=== PATIENT | male | born 1950 | race Caucasian/White ===

== ENCOUNTER → 2017-12-12 | Outpatient (CLI) | payer MEDICARE ==
[~2017-12-12] MED LIST: ALPR1T PO; ASP81TEC PO; CLOP75TA PO; CRESTOR40 MG PO; HYDR-3720 PO; LISI10TA PO; LISI5TAB PO; LSNP10T PO; LSNP20T PO; MELO-195 PO; METO-272 PO; METO25TA2 PO; MTP25TSR PO; MULT-974 PO; PRAV10TA23 PO
== END ==
LOC: RAD 12:50
PROVIDERS: ATTEND Internal Medicine Cardiovascular Disease
DX: I73.9 Peripheral vascular disease, unspecified (principal); I10 Essential (primary) hypertension; F17.210 Nicotine dependence, cigarettes, uncomplicated
CPT/HCPCS: 93923

== ENCOUNTER → 2017-12-15 | Outpatient (CLI) | payer MEDICARE | LOC: CARD 12:07 | PROVIDERS: ATTEND Internal Medicine Cardiovascular Disease | DX: I25.10 Atherosclerotic heart disease of native coronary artery without angina pectoris (principal); E78.5 Hyperlipidemia, unspecified; I10 Essential (primary) hypertension; Z72.0 Tobacco use; I77.89 Other specified disorders of arteries and arterioles | CPT/HCPCS: 93306 ==

== ENCOUNTER 2019-09-10 12:07 | Day surgery (SDC) | payer MEDICARE, OTHER ==
[2019-09-10] VITALS (11 sets, daily range): BP systolic 151–170; BP diastolic 89–99
[~2019-09-10] VITALS: Ht 165 cm; Wt 61.0 kg
[2019-09-10] MEDS ORDERED: NS IV 1000 ML 1,000 ML ONE (12:13)
[2019-09-10] MEDS ORDERED: LIDOCAINE 1% INJ 20 ML 20 ML VIAL ONE (12:13)
[2019-09-10] MEDS ORDERED: HEParin (CATH LAB) 2,000 ML IV ONE (12:13)
[2019-09-10] MEDS ORDERED: NS IV 1000 ML 1,000 ML IV SCH ×2 (12:30→16:52)
--- NOTE | 2019-09-10 12:53 | Diagnostic Imaging Report ---
INDICATION: Coronary artery disease, hypertension Portable chest 12:28 PM There are postoperative changes from median sternotomy. Heart size and pulmonary vascularity are normal. Lungs are clear. There are no effusions or pneumothoraces. IMPRESSION: No acute abnormalities in the chest. Dictated by: Dictated on workstation # [id number]
[2019-09-10 13:12] LABS: HEMOGLOBIN 14.8 G/DL (13.3-17.7); MEAN PLATELET VOLUME 10.8 FL (7.4-10.4); RED CELL DISTRIBUTION WIDTH 14.5 % (10.0-14.5)
[2019-09-10] MEDS ORDERED: CHLO50TA2 PO (13:15)
[2019-09-10] MEDS ORDERED: MTP25TSR PO (13:15)
[2019-09-10] MEDS ORDERED: CELE200C PO (13:15)
[2019-09-10] MEDS ORDERED: LISI40TA PO (13:15)
[2019-09-10 13:29] LABS: INR 0.9 (0.8-1.4); PROTHROMBIN TIME PATIENT 12.7 SEC (12.2-14.7)
[2019-09-10 13:34] LABS: ALANINE AMINOTRANSFERASE 32 U/L (0-55); ALKALINE PHOSPHATASE 109 U/L (40-136); BILIRUBIN,TOTAL 0.4 MG/DL (0.1-1.0); BUN/CREATININE RATIO 16; CALCIUM 9.8 MG/DL (8.5-10.1); CARBON DIOXIDE 29 MMOL/L (21-32); CHLORIDE 105 MMOL/L (98-107); CHOLESTEROL 146 MG/DL (< 200); CREATININE SERUM 1.13 MG/DL (0.60-1.30); GFR ESTIMATED > 60; GLUCOSE 76 MG/DL (70-105); HDL CHOLESTEROL 59 MG/DL (40-60); POTASSIUM 3.8 MMOL/L (3.6-5.0); SODIUM 141 MMOL/L (135-145); TOTAL PROTEIN 7.6 GM/DL (6.4-8.2); TRIGLYCERIDES 85 MG/DL (<150); VLDL CHOLESTEROL 17 MG/DL (5-40)
[2019-09-10] MEDS ORDERED: fentaNYL INJECTION 100 MCG/2 ML AMP ONE ×2 (14:25→14:39)
[2019-09-10] MEDS ORDERED: MIDAZOLAM 5 MG/5 ML (VERSED) VIAL ONE ×2 (14:25→14:39)
--- NOTE | 2019-09-10 14:57 | Cardiac Procedure Note-CS/ASA ---
Pre-Procedure Note Pre-Op Procedure Note H&P Reviewed The H&P was reviewed, patient examined and no changes noted. Date H&P Reviewed: Sep 10, 2019 Time H&P Reviewed: 14:56 Conscious Sedation Pre-Proced Time 14:56 ASA Score 3 For ASA 3 and 4: Consider anesthesia and medical clearance. Also, for patients with a history of failed moderate sedation consider anesthesia. Airway Lungs Heart ASA score ASA 1: a normal healthy patient ASA 2: a patient with a mild systemic disease (mid diabetes, controlled hypertension, obesity ASA 3: a patient with a severe systemic disease that limits activity (angina, COPD, prior Myocardial infarction) ASA 4: a patient with an incapacitating disease that is a constant threat to life (CHF, renal failure) ASA 5: a moribund patient not expected to survive 24 hrs. (ruptured aneurysm) ASA 6: a declared brain- patient whose organs are being harvested. For emergent operations, add the letter E after the classification Mallampati Classification Grade 2 Sedation Plan Analgesia, Amnesia, Plan communicated to team members, Discussed options with patient/fam, Discussed risks with patient/fam The patient is an appropriate candidate to undergo the planned procedure, sedation, and anesthesia. The patient immediately re-assessed prior to indication. AZEEM MICHAUD MD FACP FAC CCDS Sep 10, 2019 14:57
[2019-09-10] MEDS ORDERED: HEParin 1000 UNIT/ML (10ML VIAL) FOR BOLUS ONE (15:31)
--- NOTE | 2019-09-10 16:57 | Discharge Inst-Post CATH ---
Discharge Inst-CATH/EP Post Cardiac Cath/EP D/C Inst Follow Up/Plan Please call Dr Cruz's office tomorrow to [facility] ACTIVITY * Go Home directly and rest. * Limit activity of the leg (or wrist if it was used) for 7 days including aerobics, swimming, jogging, bicycling, etc. * Restrict stair-climbing for 7 days if possible, if not, climb up with your non-cath leg, then bring together on the same step. * Avoid lifting, pushing, pulling or excessive movement of the affected extremity for 7 days. * Customary sexual activity may be resumed after 2 days-use caution not to use a position that strains or causes pain to the affected extremity. * No driving for 24 hours. * NO SMOKING. * Avoid straining for bowel movements for 7 days. * Gentle walking on level ground is allowed. * Returning to work will depend on the type of procedure and the results. Your doctor will discuss this with you. CALL YOUR DOCTOR FOR ANY OF THE FOLLOWING: *If bleeding from the puncture site occurs- Apply gentle pressure to site with clean cloth and call your doctor or EMS. * If a knot or lump forms under the skin, increases in size, or causes pain. * If bruising appears to be worsening or moving further down your leg instead of disappearing. * Temperature above 101 F. CARE OF YOUR GROIN INCISION; * Bruising or purple discoloration of the skin near the puncture site is common. * You may shower only, no bathtub bathing for 5 days. Be careful to avoid slipping as your leg may feel stiff. * If a closure device was used on your femoral artery, please see the attached guide regarding care of the device and your leg. * Leave dressing on FOR 24 hours. CARE OF YOUR WRIST INCISION; * Bruising or purple discoloration of the skin near the puncture site is common. * You may shower. * DO NOT submerge wrist. * Leave dressing on FOR 24 hours. AZEEM CRUZ MD FACP FAC CCDS Sep 10, 2019 16:57
--- NOTE | 2019-09-10 16:57 | Discharge Inst-Cardiology ---
Discharge Inst-Cardiac Discharge Medications Continued Medications: Aspirin (Aspirin Ec 81 Mg) 81 Mg Tabec 81 MG PO DAILY Celecoxib (Celebrex) 200 Mg Capsule 200 MG PO DAILY, CAP Chlorthalidone (Chlorthalidone) 50 Mg Tablet 50 MG PO DAILY, TAB Lisinopril (Lisinopril) 40 Mg Tablet 40 MG PO DAILY, TAB Metoprolol Succinate (Metoprolol Succinate) 25 Mg Tab.er.24h 25 MG PO DAILY, TAB Multivitamin (Multi Vitamin Daily) 1 Each Tablet 1 TAB PO DAILY Rosuvastatin Calcium (Crestor) 40 Mg Tablet 40 MG PO AZEEM MICHAUD MD FACP FAC CCDS Sep 10, 2019 16:57
[2019-09-10] MEDS ORDERED: PATIENT MAY USE OWN MEDS, ALL PO SCH (17:00)
--- NOTE | 2019-09-10 17:17 | OPERATIVE REPORT ---
DATE OF SERVICE: 09/10/2019 PERIPHERAL ANGIOGRAPHY REPORT The patient is a 69-year-old man who has multiple risk factors for peripheral arterial disease, including chronic tobacco use. He has been experiencing bilateral leg claudication, more on the left side. Symptoms have been progressive and are quite severe at this time. Peripheral angiography was carried out after having obtained an informed consent. DESCRIPTION OF PROCEDURE: He was brought to the cardiac catheterization laboratory in a fasting state. Right groin was prepared and draped in the usual sterile fashion. Lidocaine 1% was obtained for local anesthesia. Modified Seldinger technique was used to advance a 5-Kazakh sheath in right femoral artery. A 5-Kazakh pigtail catheter was used to carry out abdominal aortic angiography with the pigtail catheter placed at the level of L1. The abdominal aortic angiography was repeated with the catheter placed at the level of JL4. Finally, the pigtail was placed just above the aortoiliac bifurcation and bilateral leg artery angiography was performed with runoff down to the level of the ankles. We then proceeded with selective engagement of the contralateral iliac artery (left iliac artery). We used a 5-Kazakh crossover catheter to engage the left iliac artery and runoff was performed down to the level of the ankle. Subsequently, we advanced a Glidewire through the crossover catheter and into the left common femoral and we removed the Glidewire while keeping the wire in position. We used this wire to advance a 5-Kazakh straight catheter, which was placed in the common femoral and we were able to repeat angiography. During the attempted interventional procedure that is described below, we were able to advance this catheter into the proximal portion of the left superficial femoral, as well. For the attempted interventional procedure, please see below. Attempted percutaneous intervention to the left superficial femoral. The left superficial femoral artery was found to be completely occluded. 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 We used a Storq wire, Glidewire, and 0.018 inch Command wire. We were not able to advance any of these cross the complete occlusion and at this point, decided to not pursue it further and bring the patient back at a later date for a popliteal approach. Prior to removing the catheter, we did confirm with repeat angiography that there had been no complication from the attempted intervention. The straight catheter was removed. We carried out angiography of the right femoral artery through the sheath and Mynx was used to achieve hemostasis. He tolerated the procedure well. ABDOMINAL AORTIC ANGIOGRAPHY: Abdominal aortic angiography indicated a small infrarenal abdominal aortic aneurysm. The renal arteries are identified and are intact. The origin of the right renal artery, however, was not well visualized on these images. The renal arteries, to the extent seen, do not exhibit any significant disease. BILATERAL LEG ARTERY ANGIOGRAPHY: There is considerable calcification and tortuosity of the iliac arteries, especially on the right side. The right common iliac, external iliac, common femoral and superficial femoral arteries exhibit moderate plaque and mild to moderate calcification. The superficial femoral does trifurcate with a 3-vessel distal runoff. On the left side, the common iliac, external iliac and common femoral arteries exhibit calcification and moderate plaque. The left superficial femoral artery is occluded in its proximal portion and reconstitutes via collaterals in its distal one third. The left popliteal artery does seem to trifurcate normally. Attempted intervention to this vessel was unsuccessful today. CONCLUSIONS: 1. Small abdominal aortic aneurysm. 2. Intact bilateral renal arteries. 3. 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 4. Diffuse moderate disease of the arterial circulation of the lower limbs. DISCUSSION AND RECOMMENDATIONS: He has been advised to quit smoking immediately and completely. Antiplatelet therapy is being continued. We will try retrograde intervention to the chronic total occlusion of the left superficial femoral artery via a left popliteal approach at a later date. Job ID: [id number] DocumentID: [id number] Dictated Date: 09/10/2019 16:20:25 Core Worker Date: 09/10/2019 17:16:35 Dictated By: AZEEM MICHAUD MD, MA, FACP, FACC, MTDD
[2019-09-10] MEDS ORDERED: lisINopril 20 MG (PRINIVIL) TABLET PO NR (19:15)
== END 2019-09-10 20:58 ==
LOC: CATH 12:07 → CSD 16:30 → CATH 20:58
PROVIDERS: ATTEND Internal Medicine Cardiovascular Disease
DX: I71.4 Abdominal aortic aneurysm, without rupture (principal); I77.1 Stricture of artery; I25.10 Atherosclerotic heart disease of native coronary artery without angina pectoris; I73.9 Peripheral vascular disease, unspecified; I10 Essential (primary) hypertension; E78.5 Hyperlipidemia, unspecified; G89.29 Other chronic pain; M54.9 Dorsalgia, unspecified; R00.1 Bradycardia, unspecified; F17.210 Nicotine dependence, cigarettes, uncomplicated; F41.9 Anxiety disorder, unspecified; Z79.899 Other long term (current) drug therapy; Z82.3 Family history of stroke
CPT/HCPCS: 36415; 71045; 75625; 75716; 80053; 80061; 85027; 85610; 85730; 87081; 93005

== ENCOUNTER 2019-09-17 07:03 | Day surgery (SDC) | payer MEDICARE, OTHER ==
[~2019-09-17] VITALS: Ht 165 cm; Wt 61.0 kg
[2019-09-17] VITALS (11 sets, daily range): BP systolic 91–123; BP diastolic 61–82
[~2019-09-17 07:03] MED LIST changes: +CELE200C PO; +CHLO50TA2 PO; +LIDOCAINE 1% INJ 20 ML 20 ML VIAL ONE; +LISI40TA PO
[2019-09-17] MEDS ORDERED: HEParin (CATH LAB) 2,000 ML IV ONE (07:04)
[2019-09-17] MEDS ORDERED: NS IV 1000 ML 1,000 ML ONE (07:04)
[2019-09-17] MEDS ORDERED: NS IV 1000 ML 1,000 ML IV SCH ×2 (07:15→11:04)
[2019-09-17 07:34] LABS: HEMOGLOBIN 14.5 G/DL (13.3-17.7); MEAN PLATELET VOLUME 10.8 FL (7.4-10.4); RED CELL DISTRIBUTION WIDTH 14.4 % (10.0-14.5); WHITE BLOOD COUNT 11.8 10^3/uL (4.3-11.0)
[2019-09-17 07:52] LABS: INR 0.9 (0.8-1.4); PROTHROMBIN TIME PATIENT 12.6 SEC (12.2-14.7)
[2019-09-17 08:00] LABS: ALBUMIN 3.9 GM/DL (3.2-4.5); BILIRUBIN,TOTAL 0.3 MG/DL (0.1-1.0); CALCIUM 9.7 MG/DL (8.5-10.1); CREATININE SERUM 1.21 MG/DL (0.60-1.30); POTASSIUM 3.6 MMOL/L (3.6-5.0); TOTAL PROTEIN 7.4 GM/DL (6.4-8.2)
[2019-09-17] MEDS ORDERED: HEParin 1000 UNIT/ML (10ML VIAL) FOR BOLUS ONE (08:05)
[2019-09-17] MEDS ORDERED: MIDAZOLAM 5 MG/5 ML (VERSED) VIAL ONE (08:05)
[2019-09-17] MEDS ORDERED: fentaNYL INJECTION 100 MCG/2 ML AMP ONE ×2 (08:05→10:13)
--- NOTE | 2019-09-17 11:03 | Cardiac Procedure Note-CS/ASA ---
Pre-Procedure Note Pre-Op Procedure Note H&P Reviewed The H&P was reviewed, patient examined and no changes noted. Date H&P Reviewed: Sep 17, 2019 Time H&P Reviewed: 08:45 Conscious Sedation Pre-Proced Time 08:45 ASA Score 3 For ASA 3 and 4: Consider anesthesia and medical clearance. Also, for patients with a history of failed moderate sedation consider anesthesia. Airway Lungs Heart ASA score ASA 1: a normal healthy patient ASA 2: a patient with a mild systemic disease (mid diabetes, controlled hypertension, obesity ASA 3: a patient with a severe systemic disease that limits activity (angina, COPD, prior Myocardial infarction) ASA 4: a patient with an incapacitating disease that is a constant threat to life (CHF, renal failure) ASA 5: a moribund patient not expected to survive 24 hrs. (ruptured aneurysm) ASA 6: a declared brain- patient whose organs are being harvested. For emergent operations, add the letter E after the classification Mallampati Classification Grade 2 Sedation Plan Analgesia, Amnesia, Plan communicated to team members, Discussed options with patient/fam, Discussed risks with patient/fam The patient is an appropriate candidate to undergo the planned procedure, sedation, and anesthesia. The patient immediately re-assessed prior to indication. AZEEM MICHAUD MD FACP FAC CCDS Sep 17, 2019 11:03
--- NOTE | 2019-09-17 11:07 | Discharge Inst-Cardiology ---
Discharge Inst-Cardiac Discharge Medications Continued Medications: Aspirin (Aspirin Ec 81 Mg) 81 Mg Tabec 81 MG PO DAILY Celecoxib (Celebrex) 200 Mg Capsule 200 MG PO DAILY, CAP Chlorthalidone (Chlorthalidone) 50 Mg Tablet 50 MG PO DAILY, TAB Lisinopril (Lisinopril) 40 Mg Tablet 40 MG PO DAILY, TAB Metoprolol Succinate (Metoprolol Succinate) 25 Mg Tab.er.24h 25 MG PO DAILY, TAB Multivitamin (Multi Vitamin Daily) 1 Each Tablet 1 TAB PO DAILY Rosuvastatin Calcium (Crestor) 40 Mg Tablet 40 MG PO AZEEM MICHAUD MD FACP FAC CCDS Sep 17, 2019 11:07
--- NOTE | 2019-09-17 11:08 | Discharge Inst-Post CATH ---
Discharge Inst-CATH/EP Post Cardiac Cath/EP D/C Inst Follow Up/Plan F/u with Dr Cruz next week ACTIVITY * Go Home directly and rest. * Limit activity of the leg (or wrist if it was used) for 7 days including aerobics, swimming, jogging, bicycling, etc. * Restrict stair-climbing for 7 days if possible, if not, climb up with your no n-cath leg, then bring together on the same step. * Avoid lifting, pushing, pulling or excessive movement of the affected ext remity for 7 days. * Customary sexual activity may be resumed after 2 days-use caution not to use a position that strains or causes pain to the affected extremity. * No driving for 24 hours. * NO SMOKING. * Avoid straining for bowel movements for 7 days. * Gentle walking on level ground is allowed. * Returning to work will depend on the type of procedure and the results. Your doctor will discuss this with you. CALL YOUR DOCTOR FOR ANY OF THE FOLLOWING: *If bleeding from the puncture site occurs- Apply gentle pressure to site with clean cloth and call your doctor or EMS. * If a knot or lump forms under the skin, increases in size, or causes pain. * If bruising appears to be worsening or moving further down your leg instead of disappearing. * Temperature above 101 F. CARE OF YOUR GROIN INCISION; * Bruising or purple discoloration of the skin near the puncture site is common. * You may shower only, no bathtub bathing for 5 days. Be careful to avoid slipping as your leg may feel stiff. * If a closure device was used on your femoral artery, please see the attached guide regarding care of the device and your leg. * Leave dressing on FOR 24 hours. CARE OF YOUR WRIST INCISION; * Bruising or purple discoloration of the skin near the puncture site is common. * You may shower. * DO NOT submerge wrist. * Leave dressing on FOR 24 hours. AZEEM CRUZ MD [facility] F[facility] CCDS Sep 17, 2019 11:07
[2019-09-17] MEDS ORDERED: PATIENT MAY USE OWN MEDS, ALL PO SCH (11:15)
--- NOTE | 2019-09-17 12:12 | OPERATIVE REPORT ---
DATE OF SERVICE: 09/17/2019 PERIPHERAL ANGIOGRAPHY AND INTERVENTION REPORT Peripheral angiography in [facility]. The patient is a 69-year-old man who has a long segment of occlusion of the left superficial femoral, which could not be opened up antegrade about a week ago. Today, he came in for a retrograde approach. We have put him in a prone position. We used 1% lidocaine after the left popliteal area was prepared and draped in the usual sterile fashion We used ultrasounded guidance to advance a 6-Italian sheath into the left popliteal artery. Angiography of the left superficial femoral and popliteal artery was performed. We then used multiple wires to try and advance across the long segment of total occlusion in the left superficial femoral. We were not able to break into the true lumen in the left common femoral despite multiple attempts. Multiple wires and a mini catheter were used. The procedure remained unsuccessful and we finally terminated the procedure. The sheath was removed and a Mynx was used to achieve venous hemostasis. He tolerated the procedure well. 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 Job ID: [id number] DocumentID: [id number] Dictated Date: 09/17/2019 11:12:20 [employer] Date: 09/17/2019 12:11:51 Dictated By: AZEEM MICHAUD MD, MA, FACP, FACC,
== END 2019-09-17 16:12 | disposition home or self-care (01) ==
LOC: CATH 07:03 → SDC 11:01 → CATH 16:12
PROVIDERS: ATTEND Internal Medicine Cardiovascular Disease
DX: I70.219 Atherosclerosis of native arteries of extremities with intermittent claudication, unspecified extremity (principal); I25.10 Atherosclerotic heart disease of native coronary artery without angina pectoris; I10 Essential (primary) hypertension; G89.29 Other chronic pain; M54.9 Dorsalgia, unspecified; E78.5 Hyperlipidemia, unspecified; F41.9 Anxiety disorder, unspecified; F17.210 Nicotine dependence, cigarettes, uncomplicated; Z79.899 Other long term (current) drug therapy; Z53.8 Procedure and treatment not carried out for other reasons; Z82.3 Family history of stroke
CPT/HCPCS: 36415; 80053; 80061; 85027; 85610; 85730; 87081